=== PATIENT | male | born 1995 | race Caucasian/White ===

== ENCOUNTER 2018-05-21 15:10 | Emergency (ER) | payer MEDICAID ==
[~2018-05-21] VITALS: Ht 175.3 cm; Wt 59.0 kg
[2018-05-21 15:22] VITALS: BP 141/93; Ht 175.3 cm; Wt 59.0 kg
== END 2018-05-21 17:04 | disposition home or self-care (01) ==
LOC: ED 15:10
DX: H10.211 Acute toxic conjunctivitis, right eye (principal); Z88.0 Allergy status to penicillin
CPT/HCPCS: J7030; V2632